=== PATIENT | female | born 1970 | race Caucasian/White ===

== ENCOUNTER 2024-04-11 07:49 | Day surgery (SDC) | payer OTHER ==
[2024-04-05 09:25] LABS: Absolute Basophils 0.1 K/uL (0-0.5); Absolute Eosinophils 0.3 K/uL (0-0.5); Absolute Lymphocytes (CBC) 4.5 K/uL (0.7-4.9); Absolute Monocytes 0.5 K/uL (0.1-1.3); Absolute Neutrophil 5.2 K/uL (1.8-8.0); Basophils % 1.2 % (0-1.3); Eosinophils % 2.5 % (0-4.4); Hemoglobin 13.8 g/dL (12.0-15.0); Lymphocytes % 42.3 % (15.3-44.8); MCH 32.6 pg (27.0-35.0); MCHC 33.7 g/dL (32.0-36.0); MPV 8.4 fL (7.6-11.3); Monocytes % 4.6 % (3.3-12.3); Neutrophils % 49.4 % (41.7-73.7); Platelets 316 thou/uL (152-406); RBC Red Blood Cell Count 4.22 M/uL (3.86-4.86); Red Cell Distribution Width 13.8 % (12.1-15.2)
[2024-04-05 09:34] LABS: Anion Gap 8.2 mEq/L (5.0-15.0); Potassium 4.2 mEq/L (3.5-5.1)
--- NOTE | 2024-04-09 18:01 | EKG ---
Test Date: 2024-04-05 Test Time: 08:30:32 Cost And Sales Record Supervisor: IZABELA MEASUREMENT RESULTS: Intervals: Rate: 60 AR: 196 QRSD: 84 QT: 402 QTc: 402 [place]: P: 71 AR: 196 QRS: 68 T: 60 INTERPRETIVE STATEMENTS: Normal sinus rhythm Normal ECG No previous ECG available for comparison Electronically Signed On 04-09-24 17:51:13 CDT by Lester Curran
[2024-04-11] MEDS: Ringers Lactate 1,000 ML IV ONE (08:16)
[2024-04-11] MEDS ORDERED: BACITRACIN OINTMENT 14 GM TUBE TOP ONE (08:54)
[2024-04-11] MEDS ORDERED: FENTANYL CITR 100 MCG/2 ML ONE (09:22)
[2024-04-11] MEDS ORDERED: ROCURONIUM 50 MG/5 ML VIAL IV ONE (09:22)
[2024-04-11] MEDS ORDERED: LIDOCAINE 2% MPF 5 ML VIAL ONE (09:22)
[2024-04-11] MEDS ORDERED: ONDANSETRON 4 MG/2 ML VIAL ONE (09:22)
[2024-04-11] MEDS ORDERED: propofoL 200 MG/20 ML VIAL IV ONE (09:22)
[2024-04-11] MEDS ORDERED: MIDAZOLAM HCL 2 MG/2 ML INJ ONE (09:22)
[2024-04-11] MEDS ORDERED: SUGAMMADEX SODIUM 200 MG/2 ML VIAL IV ONE (09:44)
[2024-04-11] MEDS ORDERED: HYDROMORPHONE HCL 1 MG/ML INJ ONE (09:44)
[2024-04-11] MEDS: CEFAZOLIN SODIUM 1 GM/VIAL ONE (09:54)
[2024-04-11] MEDS: OXYMETAZOLINE HCL 0.05% 15ML NAS ONE (10:06)
[2024-04-11] MEDS: LIDOCAINE HCL/EPINEPHRINE 20 ML MDV ONE (10:10)
[2024-04-11] MEDS ORDERED: EPHEDRINE SULF 50 MG/ML VIAL ONE (10:13)
[2024-04-11] MEDS: HYDROMORPHONE HCL 1 MG/ML INJ ONE (11:52)
[2024-04-11 13:41] VITALS: BP 104/51; TEMP 98; O2SAT 99
[2024-04-11] MEDS: ACETAMINOPHEN 325 MG TABLET ONE (13:48)
--- NOTE | 2024-04-14 21:51 | OP ---
Date of Procedure: 04/11/2024 Surgeon: JAHAIRA FRIAS Preoperative Diagnoses: 1.Bilateral chronic eustachian salpingitis intrinsic cartilaginous obstruction. 2.Deviated nasal septum. 3.Hypertrophy of bilateral nasal inferior turbinates. 4.Bilateral nasal valve collapse. Postoperative Diagnoses: 1.Bilateral chronic eustachian salpingitis intrinsic cartilaginous obstruction. 2.Deviated nasal septum. 3.Hypertrophy of bilateral nasal inferior turbinates. 4.Bilateral nasal valve collapse. Procedures: 1.Bilateral nasal endoscopy with bilateral eustachian tube balloon dilation. 2.Septoplasty. 3.Bilateral VivAer reduction of inferior nasal turbinate hypertrophy. 4.Bilateral VivAer remodeling of nasal valves. Anesthesia: General endotracheal anesthesia was administered. I also infiltrated approximately 10 m L of 1% lidocaine with 1:100,000 epinephrine at the area for VivAer treatment, which included the int ernal nasal valve and external nasal valve and anterior face of bilateral inferior turbinates and maggy ateral nasal septal mucosa. Specimens: None. Findings: Bilateral eustachian tube orifice obstruction; right greater than left nasal septal deviat ion; bilateral inferior turbinate hypertrophy 3/4; bilateral nasal valve collapse, moderate. Estimated Blood Loss: Approximately 20 mL. Complications: None. Disposition: Stable. The patient tolerated procedure well. Indication For Procedure: The patient is a pleasant 53-year-old female who presented to my outpatien t clinic with bilateral ear tinnitus, bilateral aural fullness, recurring bilateral ear infections th at had been present for 8 to 12 months. Examination revealed bilateral tympanic membrane atelectasis and evidence of eustachian tube dysfunction. Nasal endoscopy also revealed bilateral eustachian tub e obstruction/congestion. In addition, the patient had inability breathing through both nasal caviti es secondary to bilateral nasal valve collapse, inferior turbinate hypertrophy, and nasal septal katherine ation. She has been treated with multiple nasal corticosteroid sprays, decongestants, and antihistam elva and her condition has been refractory to medical therapy. These were indications to bring the p atient to operative suite for the above-mentioned procedures. She understood. All questions were an swered. Risks versus benefits and complications were explained in detail and a consent form was sign ed, which was placed in the chart. Description Of Procedure: The patient was transferred from the preoperative holding area to the oper ative suite by Department of Anesthesia, placed on the operating table supine, sedated and intubated in normal fashion. Table was rotated 180 degrees. I infiltrated approximately 10 mL of 1% lidocaine with 1:100,000 epinephrine into bilateral nasal valves, inferior turbinate mucosa, and nasal septal mucosa. The patient was then sterilely prepped and draped. The patient received Ancef IV, Zofran, a nd Decadron. Initially, I had placed Afrin-soaked nasal pledgets into bilateral nasal cavities in order to easily access the eustachian tube orifices. The pledgets were removed and my attention was placed to the le ft eustachian tube orifice, which was easily approached by lateralizing the left inferior turbinate. I also had to cauterize the posterior edge of the inferior turbinates to reach the eustachian tube o rifice. I then was able to visualize the left eustachian tube orifice and I gently inserted the ball oon into the opening and inflated the balloon to 12 mmHg for 2 minutes. Once this time elapsed, I de flated the balloon and removed it. My attention was placed to the right eustachian tube orifice. Th e patient has significant septal deviation, which I had to medialize with a [place] elevator. I also h ad to cauterize the posterior edge of the inferior turbinate in order to access the eustachian tube o rifice. Once I was able to easily visualize, I gently inserted the balloon into the right eustachian tube orifice and inflated the balloon to 12 mmHg for 2 minutes. After 2 minutes elapsed, I deflated the balloon and removed it. Next, my attention was placed to the nasal septum, in which the nasal s eptal mucosa was incised utilizing a modified Faustino incision with #15 blade scalpel. I then elevat ed the mucosa off the obstructive cartilage and bone. I then made a crossover incision with a #15 bl conchis scalpel, elevating the mucosa off the right cartilage and bone. Then once I was able to isolate the obstructive cartilage and bone, I removed it with a septal knife and Tammi forceps. The muco derek flaps were then reapproximated in a box-like fashion with 5-0 chromic gut suture on straight Keit h needle and then the mucosal incision was reapproximated in a continuous running fashion with 4-0 pl ain gut suture. Next, my attention was placed to VivAer reduction of the nasal valves. Utilizing th e VivAer wand, I was able to apply it to 3 areas of the left internal nasal valve and I performed rad iofrequency ablation to these areas. I then repeated this by putting the wand at three different are as of the right internal nasal valve and remodeled the right internal nasal valve utilizing the VivAe r wand. I then reduced the size of bilateral inferior turbinates by applying it at 5 different areas of the left inferior turbinate and 5 areas of the right inferior turbinate and performed VivAer redu ction of these structures. I then coated Vivas splints with antibiotic ointment and inserted them af ter cutting them down to size into bilateral nasal cavities and secured the splints at the caudal sep susana with a 2-0 Prolene suture. A mustache dressing was placed and she tolerated the procedures well. She will be discharged home on antibiotic and analgesic medications as well as mupirocin ointment a nd will follow up in 1 week or sooner if needed. PATY/JACK Voice ID: [id number] Report ID: [id number]
== END 2024-04-11 13:11 | disposition home or self-care (01) ==
LOC: OR 07:49
PROVIDERS: ATTEND Otolaryngology Facial Plastic Surgery
PROC: 09SM4ZZ Reposition Nasal Septum, Percutaneous Endoscopic Approach (ICD-10-PCS; 2024-04-11)
PROC: 09QM8ZZ Repair Nasal Septum, Via Natural or Artificial Opening Endoscopic (ICD-10-PCS; 2024-04-11)
PROC: 097G7ZZ Dilation of Left Eustachian Tube, Via Natural or Artificial Opening (ICD-10-PCS; principal; 2024-04-11 09:00)
PROC: 097F7ZZ Dilation of Right Eustachian Tube, Via Natural or Artificial Opening (ICD-10-PCS; 2024-04-11 09:00)
DX: H68.023 Chronic Eustachian salpingitis, bilateral (principal); J34.89 Other specified disorders of nose and nasal sinuses; J34.2 Deviated nasal septum; H93.11 Tinnitus, right ear; J34.3 Hypertrophy of nasal turbinates
CPT/HCPCS: 69706; 30520; 30469; 93005; 85025; 80048; 36415; 30802; J2704; J2001; J2250; J3010; J1170 ×2; J2405; J7120; J0690

== ENCOUNTER 2024-04-13 16:38 | Inpatient (IN) | payer OTHER ==
--- OUTSIDE RECORDS SUMMARY | 2024-04-13 16:42 | XMS REPORT | Continuity of Care Document ---
Author Name Unknown Address [address] [place] [address] [facility] thconnect Address [address] [place] [address] Care Team Providers Care Technical Solutions Engineer Name Role Phone Silvestre Yanes Primary Care Physician [phone] Vahe Bangura Attending Clinician Unavailable [id number] Attending Clinician Unavailable CHENCHO MCKINLEY Attending Clinician Unavailable Lm Villanueva Attending Clinician Unavailable Gisel Baker MD Attending Clinician [phone] GISEL BAKER Attending Clinician UnavailARGENTINA Lynne Attending Clinician Unavailable Ilda Attending Clinician Unavaila Jovanni Rivera Attending Clinician Unavailable Jovanni Edge Attending Clinician [phone] Lm Villanueva Admitting Clinician Unavailable Ilda Admitting Clinician Unavaila elsi Payers Payer Name Policy Type Policy Number Effective Date Expirati on Date Source [employer] 2 [id number] 2024 00:00:00 [facility] - OPEN ACCESS PLUS (POS) [id number] 2022 00:00:00 Problems Condition Name Condition Details Condition Category Status Onset Date Resolution Date Last Treatment Date Treating Clinician Comments Source Menopausal symptom Menopausal Symptom Problem Active 03-13 00:00: 00 [facility] Pain of right ankle joint Pain of Right Ankle Joint Problem Active 04-19 00:00: 00 [facility] Talipes planus Talipes Planus Problem Active 04-19 00:00: 00 [facility] Disorder of posterior tibial muscle tendon Disorder of Posterior Tibial Muscle Tendon Problem Active 04-19 00:00: 00 [facility] Pain of left ankle joint Pain of Left Ankle Joint Problem Active 04-18 00:00: 00 [facility] Allergies, Adverse Reactions, Alerts Allergy Name Allergy Type Status Severity Reaction(s) Onset Date Inactive Date Treating Clinician Comments Source PENICILL INS Drug Class Active Med N/V 11-14 00:00: 00 [facility] Penicill ins Propensi ty to adverse reaction s Active Nausea and/or Vomiting 11-14 00:00: 00 [facility] Penicill ins Propensi ty to adverse reaction s Active Nausea and Vomiting 11-14 00:00: 00 Renee Presley - Externa l NO KNOWN ALLERGIE S Drug Class Active [facility] Social History Social Habit Start Date Stop Date Quantity Comments Source Sexual orientation Roman diane Presley - External Exposure to SARS-CoV-2 (event) 2022-11-04 00:00:00 2022-11-14 14:28:00 Not sure [facility] Sex assigned at 1970 00:00:00 1970 00:00:00 Renee Presley - External Smoking Status Start Date Stop Date Source Heavy Tobacco Smoker [facility] Tobacco smoking consumption unknown Renee Presley - External Medications Ordered Medication Name Filled Medication Name Start Date Stop Date Current Medication? Ordering Clinician Indication Dosage Frequency Signature (SIG) Comments Components Source Fenofibrate Micronized 130 MG oral Capsule 02-14 15:37: 32 Yes fenofibrat e micronized 130 mg capsule Renee fish Mupirocin (BACTROBAN) 2 % apply externally Ointment 01-31 00:00: 00 Yes [facility] fish FLUTICASONE PROPIONATE, NASAL, 50 MCG/ACT nasal Suspension 10 00:00: 00 Yes Renee fish dexAMETHaso ne 1 mg tablet 3- 00:00: 00 Yes [facility] estradioL 0.1 mg/24 hr twice weekly patch 10-17 00:00: 00 Yes [facility] fenofibrate micronized 130 mg capsule 10-17 00:00: 00 Yes [facility] meloxicam 15 mg tablet - 00:00: 00 Yes [facility] tiZANidine 4 mg tablet - 00:00: 00 Yes [facility] cefdinir 300 mg capsule 08-26 00:00: 00 Yes [facility] diclofenac sodium 50 mg tablet,senait yed release diclofenac sodium 50 mg tablet,senait yed release No diclofenac sodium 50 mg tablet,del ayed release [facility] Blisovi Fe 1/20 (28) 1 mg-20 mcg (21)/75 mg (7) tablet Blisovi Fe 1/20 (28) 1 mg-20 mcg (21)/75 mg (7) tablet No [place]ovi Fe 1/20 (28) 1 mg-20 mcg (21)/75 mg (7) tablet [facility] doxycycline hyclate 100 mg tablet doxycycline hyclate 100 mg tablet No doxycyclin e hyclate 100 mg tablet [facility] gabapentin 100 mg capsule gabapentin 100 mg capsule No gabapentin 100 mg capsule [facility] pravastatin 20 mg tablet pravastatin 20 mg tablet No pravastati n 20 mg tablet [facility] sulfamethox azole 800 mg-trimetho prim 160 mg tablet sulfamethox azole 800 mg-trimetho prim 160 mg tablet No sulfametho xazole 800 mg-trimeth oprim 160 mg tablet [facility] Divigel 1 mg/gram (0.1 %) transdermal gel packet Apply 1 packet every day by transdermal route. Divigel 1 mg/gram (0.1 %) transdermal gel packet Apply 1 packet every day by transdermal route. No 1packet (s) Q1D Divigel 1 mg/gram (0.1 %) transderma l gel packet Apply 1 packet every day by transderma l route. [facility] fenofibrate micronized 134 mg capsule fenofibrate micronized 134 mg capsule No fenofibrat e micronized 134 mg capsule [facility] gabapentin 100 mg capsule gabapentin 100 mg capsule No gabapentin 100 mg capsule [facility] progesteron e micronized 100 mg capsule Take 1 capsule every day by oral route. progesteron e micronized 100 mg capsule Take 1 capsule every day by oral route. No 1capsul e(s) Q1D progestero ne micronized 100 mg capsule Take 1 capsule every day by oral route. [facility] Vital Signs Vital Name Observation Time Observation Value Comments S ource BP Diastolic 2024-03-13 00:00:00 79 mm[Hg] [facility] BMI (Body Mass Index) 2024-03-13 00:00:00 27 kg/m2 [facility] Body Weight 2024-03-13 00:00:00 162 [lb_av] [facility] BP Systolic 2024-03-13 00:00:00 134 mm[Hg] [facility] Height 2024-03-13 00:00:00 65 [in_i] [facility] Systolic blood pressure 2024-02-15 20:35:00 122 mm[Hg] Renee Multani ld - External Diastolic blood pressure 2024-02-15 20:35:00 64 mm[Hg] Renee cifuentes - External Heart rate 2024-02-15 20:35:00 109 /min Scottie Presley - External Body temperature 2024-02-15 20:35:00 36.83 Violeta Renee Presley - External Respiratory rate 2024-02-15 20:35:00 18 /min Renee Presley - External Body height 2024-02-15 20:35:00 165.1 cm Mariel Presley - External Body weight 2024-02-15 20:35:00 74.934 kg Mariel Sagastumeold - External BMI 2024-02-15 20:35:00 27.49 kg/m2 Mariel Presley - External Oxygen saturation in Arterial blood by Pulse oximetry 2024-02-15 20:35:00 95 /min Renee Multani ld - External Systolic blood pressure 2022-11-14 19:50:00 127 mm[Hg] [facility] Diastolic blood pressure 2022-11-14 19:50:00 83 mm[Hg] [facility] Heart rate 2022-11-14 19:50:00 91 /min [facility] Body height 2022-11-14 19:50:00 165.1 cm [facility] Body weight 2022-11-14 19:50:00 73.891 kg [facility] BMI 2022-11-14 19:50:00 27.11 kg/m2 [facility] Procedures Procedure Date / Time Performed Performing Clinician Source SCREENING MAMMOGRAPHY BI 2-VIEW BREAST INC CAD 2024-03-13 00:00:00 [facility] DXA BONE DENSITY STUDY 1/> SITES AXIAL SKEL 2024-03-13 00:00:00 [facility] XR, ankle, 3 or more view 2022-04-19 00:00:00 [facility] MRI, ankle, w/o contrast 2022-04-19 00:00:00 [facility] Orthopedic Surgery 1982-08-21 00:00:00 [facility] Caesarean Section [facility] Med ical Plan of Care Planned Activity Planned Date Details Comments Source Instructions [facility] Encounters Start Date/Time End Date/Time Encounter Type Admission Type Attending Clinicians Care Facility Care Department Encounter ID Source 2024-03-26 08:00:00 2024-03-26 08:00:00 Outpatient Vahe Hagan [facility] [id number] 2024-03-13 00:00:00 2024-03-13 00:00:00 Vahe Bangura MD: [address] [place] [address] , Ph. [facility] [id number] [facility] 2024-02-15 16:30:00 2024-02-15 16:30:00 Outpatient LAUREEN BRUMFIELD RENEE [id number] Renee [facility] 2024-02-15 15:45:00 2024-02-15 15:45:00 Outpatient ELÍAS CHENCHO RENEE BRUMFIELD [id number] Renee [facility] 2024-02-15 08:15:00 2024-02-15 08:15:00 Outpatient CHENCHO MCKINLEY RENEE RENEE [id number] Renee [facility] 2023-03-22 11:49:00 2023-03-22 11:49:00 Outpatient Lm Reese [facility] [id number] [facility] 2023-03-02 12:00:00 2023-03-02 12:00:00 Outpatient Lm Reese [facility] [id number] [facility] 2022-11-14 14:45:00 2022-11-14 15:13:06 Office Visit Gisel [facility] [id number] [facility] 2022-11-14 14:45:00 2022-11-14 15:13:06 Outpatient R GISEL BAKER [facility] [id number] [facility] 2022-11-10 00:00:00 2022-11-10 00:00:00 Telephone Nas Bakergrace Fish [facility] [id number] [facility] 2022-11-09 15:00:00 2022-11-09 15:00:00 Outpatient ARGENTINA HOLMAN [facility] [id number] [facility] 2022-06-13 00:00:00 2022-06-13 00:00:00 Outpatient FOG_Minesh_ Scott AOSM AO [id number] [facility] 2022-04-19 14:30:00 2022-04-19 14:30:00 [facility] [id number] [facility] 2022-04-19 00:00:00 2022-04-19 00:00:00 Outpatient FOG_Minesh_ Jovanni_ AOSM AOSM [id number] [facility] 2022-04-19 00:00:00 2022-04-19 00:00:00 Jovanni Edge MD: [address] [place] [id number] , Ph. [phone] [facility] [place] [facility] [id number] [facility] 2022-04-19 00:00:00 2022-04-19 00:00:00 Outpatient Marintristan Jovanni Rickie AOSM AOSM [id number] 2022-04-19 00:00:00 2022-04-19 00:00:00 Outpatient Minesh Jovanni Rickie AOSM AOSM [id number] 2022-04-15 00:00:00 2022-04-15 00:00:00 Outpatient LULU_Silvia Chavez AOSM [id number] [facility] 2022-02-24 08:00:00 2022-02-24 08:00:00 Outpatient Lm Reese [facility] [id number] [facility] 2021-03-08 12:00:00 2021-03-08 12:00:00 Outpatient Lm Reese [facility] [id number] [facility] 2021-02-18 12:00:00 2021-02-18 12:00:00 Outpatient Lm Reese [facility] [id number] [facility] Notes Date/Time Note Provider Source 2024-02-15 15:37:40 Chief Complaint Patient presents with Results RF levels Hand Pain Kya Almendarez CMA I T [facility]
[2024-04-13] MEDS ORDERED: FAMOTIDINE 20 MG/2 ML VIAL IV ONE (17:39)
[2024-04-13] MEDS ORDERED: Meropenem 1000 MG/VIAL IV ONE (17:39)
[2024-04-13] MEDS ORDERED: NA CHLORIDE 0.9% 0 ML ONE (17:39)
[2024-04-13] MEDS ORDERED: NA CHLORIDE 0.9% 2,000 ML ONE (17:40)
[2024-04-13 18:04] LABS: Absolute Basophils 0.1 K/uL (0-0.5); Absolute Eosinophils 0.3 K/uL (0-0.5); Absolute Lymphocytes (CBC) 1.6 K/uL (0.7-4.9); Absolute Monocytes 0.6 K/uL (0.1-1.3); Absolute Neutrophil 15.1 K/uL (1.8-8.0); Basophils % 0.5 % (0-1.3); Eosinophils % 1.8 % (0-4.4); Hemoglobin 15.2 g/dL (12.0-15.0); Lymphocytes % 8.8 % (15.3-44.8); MCH 32.3 pg (27.0-35.0); MPV 8.4 fL (7.6-11.3); Monocytes % 3.3 % (3.3-12.3); Neutrophils % 85.6 % (41.7-73.7); Platelets 285 thou/uL (152-406); RBC Red Blood Cell Count 4.69 M/uL (3.86-4.86); Red Cell Distribution Width 13.9 % (12.1-15.2)
[2024-04-13 18:15] LABS: Protime INR 0.89
--- NOTE | 2024-04-13 18:24 | ER ---
Nurse's Notes [facility] Name: Karrie Berry Age: 53 yrs Sex: Female : 1970 Arrival Date: 04/13/2024 Time: 16:38 Bed 3 Private MD: Diagnosis: Weakness;Hypothermia, initial encounter;Dizziness and giddiness;Vomiting;Epistaxis-SP SPETOPLASTY;Elevated white blood cell count;Severe sepsis without septic shock Presentation: 04/13 16:46 Chief complaint: EMS states: toned out for sudden onset of cold sweats, nausea and me1 generalized weakness. s/p septoplasty on . Temp for EMS was 92 degrees axillary. 20 g RFA established, NS 700 ml and zofran 4 mg administered as well as active warming provided. Coronavirus screen: Vaccine status: Patient reports receiving the 2nd dose of the covid vaccine. Ebola Screen: No symptoms or risks identified at this time. Initial Sepsis Screen: Does the patient meet any 2 criteria? No. Patient's initial sepsis screen is negative. Does the patient have a suspected source of infection? No. Patient's initial sepsis screen is negative. Risk Assessment: Do you want to hurt yourself or someone else? Patient reports no desire to harm self or others. Onset of symptoms was April 13, 2024. 16:46 Method Of Arrival: EMS: [place] [id number] 16:46 Acuity: KEIRA 3 me1 Triage Assessment: 16:51 General: Appears uncomfortable, ill, well groomed, well developed, well nourished, me1 Behavior is calm, cooperative, appropriate for age, Reports sudden onset of cold sweats, nausea/vomiting and weakness today. s/p septoplasty on . Pain: Complains of pain in head Pain does not radiate. Pain currently is 7 out of 10 on a pain scale. Quality of pain is described as aching, Pain began suddenly, Is continuous. EENT: No signs and/or symptoms were reported regarding the EENT system. Neuro: Level of Consciousness is awake, alert, obeys commands, Oriented to person, place, time, situation, Appropriate for age. Cardiovascular: Patient's skin is warm and dry. Respiratory: Airway is patent Trachea midline Respiratory effort is even, unlabored, Respiratory pattern is regular, symmetrical. GI: Reports nausea, vomiting. : No signs and/or symptoms were reported regarding the genitourinary system. Derm: Skin is intact, Skin is clammy, Skin is normal. Musculoskeletal: No signs and/or symptoms reported regarding the musculoskeletal system. LEASING AGENT: 16:51 LMP N/A - Hysterectomy, Not me1 Historical: - Allergies: 16:51 Amoxicillin; me1 - PMHx: 16:51 Fibromyalgia; me1 - PSHx: 16:51 septoplasty; me1 - Immunization history:: Adult Immunizations up to date. - Infectious Disease History:: Denies. - Social history:: Smoking status: Patient reports the use of cigarette tobacco products, denies chronic smoking, but will smoke occasionally. Screenin:57 [facility] ED Fall Risk Assessment (Adult) History of falling in the last 3 months, me1 including since admission No falls in past 3 months (0 pts) Confusion or Disorientation No (0 pts) Intoxicated or Sedated No (0 pts) Impaired Gait No (0 pts) Mobility Assist Device Used No (0 pt) Altered Elimination No (0 pt) Score/Fall Risk Level 0 - 2 = Low Risk Maintained a safe environment, Provided non-skid footwear, Hourly rounding (assess needs \T\ fall precautionary measures) done. Abuse screen: Denies threats or abuse. Nutritional screening: No deficits noted. Tuberculosis screening: No symptoms or risk factors identified. Assessment: 16:57 General: see triage assessment. . me1 19:47 Reassessment: Patient appears in no apparent distress at this time. Patient and/or bm8 family updated on plan of care and expected duration. Pain level reassessed. Patient is alert, oriented x 3, equal unlabored respirations, skin warm/dry/pink. Pain: Complains of pain in face Pain currently is 6 out of 10 on a pain scale. Quality of pain is described as aching, crampy. Neuro: No deficits noted. Level of Consciousness is awake, alert, obeys commands, Oriented to person, place, time, situation, Appropriate for age. 19:48 Respiratory: Airway is patent Respiratory effort is even, unlabored, Respiratory bm8 pattern is regular, symmetrical, Breath sounds are clear bilaterally. GI: Abdomen is flat, non-distended, Bowel sounds present X 4 quads. Patient currently denies nausea, pain, vomiting. : No signs and/or symptoms were reported regarding the genitourinary system. EENT: bandage to face over nose post septoplasty. Derm: No signs and/or symptoms reported regarding the dermatologic system. Vital Signs: 16:46 BP 111 / 60; Pulse 80; Resp 18; Temp 94.3(A); Pulse Ox 100% ; Weight 72.57 kg; Height 5 me1 ft. 5 in. ; Pain 6/10; 19:48 BP 120 / 47; Pulse 73; Resp 18; Temp 97.5; Pulse Ox 100% ; Pain 6/10; bm8 16:46 Body Mass Index 26.63 (72.57 kg, 165.1 cm) me1 16:46 Pain Scale: Adult me1 19:48 Pain Scale: Adult bm8 Donaldo Coma Score: 19:48 Eye Response: spontaneous(4). Motor Response: obeys commands(6). Verbal Response: bm8 oriented(5). Total: 15. ED Course: 16:45 Patient arrived in ED. me1 16:49 Mayo Ward MD is Attending Physician. [facility] 16:50 Triage completed. me1 16:51 Arm band placed on Patient placed in an exam room. me1 16:57 Patient has correct armband on for positive identification. Bed in low position. Call me1 light in reach. Side rails up X2. Provided Education on: POC. Verbalized understanding. . Client placed on continuous cardiac and pulse oximetry monitoring. NIBP monitoring applied. teletypesetter monitor on. Pulse ox on. NIBP on. Warm blanket given. 16:57 No provider procedures requiring assistance completed. Maintain EMS IV. Dressing me1 intact. Good blood return noted. Site clean \T\ dry. Gauge \T\ site: 20g RFA. Flushed with 10 mL NS. 17:27 Kristin Cox, RN is Primary Nurse. me1 17:35 Missed attempt(s): 22 gauge in right antecubital area. me1 18:03 Basic Metabolic Panel Sent. me1 18:03 CBC with Diff Sent. me1 18:03 LFT's Sent. me1 18:03 Magnesium Sent. me1 18:03 NT PRO-BNP Sent. me1 18:03 PT-INR Sent. me1 18:03 Troponin HS Sent. me1 18:03 Lactate w/ 2H reflex if indic. Sent. me1 18:03 Blood Culture Adult (2) Sent. me1 18:03 Initial lab(s) drawn, by ED staff, sent to lab. First set of blood cultures drawn by ED [facility] staff. 18:21 Reyes Luo MD is Hospitalizing Provider. [facility] 18:30 Notified ED physician of a critical lab result(s). lactate 2.1. ll1 18:42 XRAY Chest (1 view) In Process Unspecified. EDMS 19:27 Second set of blood cultures drawn by hi, Urine collected: clean catch specimen, clear. bm8 19:34 Inserted saline lock: 18 gauge in right antecubital area, using aseptic technique. bm8 Blood collected. Flushed with 10 mL NS. 19:47 US Abdomen Limited Sent. bm8 19:48 IV discontinued, intact, bleeding controlled, No redness/swelling at site. Pressure bm8 dressing applied, 20g Right wrist. 19:52 US Extremity Venous W Compression Gregg Sent. bm8 Administered Medications: 18:01 Drug: NS 0.9% IV 1000 ml IV at 1 bolus Per protocol; 1000 mL bolus Route: IV; Rate: 1 me1 bolus; Site: right wrist; 20:23 Follow up: Response: No adverse reaction; IV Status: Completed infusion; IV Intake: bm8 1000ml 18:02 Drug: NS 0.9% IV 1000 ml IV at 1 bolus Per protocol; 1000 mL bolus Route: IV; Rate: 1 me1 bolus; Site: right wrist; 19:03 Follow up: Response: No adverse reaction; IV Status: Completed infusion; IV Intake: me1 1000ml 18:02 Drug: Famotidine IVP 20 mg IVP once; dilute with 10 mL 0.9% NaCl; give over 2 minutes me1 Route: IVP; Site: right wrist; 18:38 Follow up: Response: No adverse reaction me1 18:02 Drug: Meropenem IV 1 grams IV at per protocol once; (mix in NS 100 mL) Route: IV; Rate: me1 per protocol; Site: right wrist; 18:33 Follow up: Response: No adverse reaction; IV Status: Completed infusion hi1 19:42 Drug: vancoMYCIN IVPB 1 grams IVPB once over 2 hrs Route: IVPB; Infused Over: 2 hrs; bm8 Site: right antecubital; 21:05 Follow up: Response: No adverse reaction; IV Status: Completed infusion; IV Intake: bm8 250ml 19:42 Drug: Acetaminophen PO 1000 mg PO once Route: PO; bm8 20:23 Follow up: Response: No adverse reaction bm8 Medication: 16:57 VIS not applicable for this client. me1 Intake: 19:03 IV: 1000ml; Total: 1000ml. me1 20:23 IV: 1000ml; Total: 2000ml. bm8 21:05 IV: 250ml; Total: 2250ml. bm8 Outcome: 18:24 Decision to Hospitalize by Provider. shwetha 21:04 Admitted to Tele accompanied by nurse, via wheelchair, room 408, bm8 21:04 Condition: stable 21:04 Instructed on the need for admit, Demonstrated understanding of instructions, follow-up care, medications, 21:06 Patient left the ED. bm8 Signatures: Dispatcher [employer] Mayo Daly MD MD cha Lewis, Lynsay, LEEANN RN 1 Kristin Cox RN RN hi1 Rashard Bishop RN RN bm8
--- NOTE | 2024-04-13 18:24 | EDPHYS ---
Physician Documentation [facility] Name: Karrie Berry Age: 53 yrs Sex: Female : 1970 Arrival Date: 04/13/2024 Time: 16:38 Bed 3 Private MD: ED Physician Mayo Ward HPI: 04/13 17:50 This 53 yrs old Female presents to ER via EMS with complaints of General shwetha Weakness, Nausea. 17:50 The patient presents to the emergency department with nausea, vomiting, that is shwetha intermittent. Onset: The symptoms/episode began/occurred 2 day(s) ago. Possible causes: unknown. The symptoms are aggravated by nothing. The symptoms are alleviated by nothing. Associated signs and symptoms: The patient has no apparent associated signs or symptoms. Severity of symptoms: At their worst the symptoms were mild moderate in the emergency department the symptoms are unchanged. The patient has not experienced similar symptoms in the past. TOE SEWER: 16:51 LMP N/A - Hysterectomy, Not me1 Historical: - Allergies: 16:51 Amoxicillin; me1 - PMHx: 16:51 Fibromyalgia; me1 - PSHx: 16:51 septoplasty; me1 - Immunization history:: Adult Immunizations up to date. - Infectious Disease History:: Denies. - Social history:: Smoking status: Patient reports the use of cigarette tobacco products, denies chronic smoking, but will smoke occasionally. ROS: 17:51 Constitutional: Negative for fever, chills, and weight loss, Eyes: Negative for injury, shwetha pain, redness, and discharge, ENT: Negative for injury, pain, and discharge, Neck: Negative for injury, pain, and swelling, Cardiovascular: Negative for chest pain, palpitations, and edema, Respiratory: Negative for shortness of breath, cough, wheezing, and pleuritic chest pain, Abdomen/GI: Negative for abdominal pain, nausea, vomiting, diarrhea, and constipation, Back: Negative for injury and pain, : Negative for injury, bleeding, discharge, and swelling, MS/Extremity: Negative for injury and deformity, Skin: Negative for injury, rash, and discoloration, Psych: Negative for depression, anxiety, suicide ideation, homicidal ideation, and hallucinations, Allergy/Immunology: Negative for hives, rash, and allergies, Endocrine: Negative for neck swelling, polydipsia, polyuria, polyphagia, and marked weight changes, Hematologic/Lymphatic: Negative for swollen nodes, abnormal bleeding, and unusual bruising, 17:51 Abdomen/GI: Positive for nausea, vomiting, and diarrhea, 17:51 Neuro: Positive for dizziness, weakness, Exam: 17:51 Constitutional: This is a well developed, well nourished patient who is awake, alert, shwetha and in no acute distress. Head/Face: Normocephalic, atraumatic. Eyes: Pupils equal round and reactive to light, extra-ocular motions intact. Lids and lashes normal. Conjunctiva and sclera are non-icteric and not injected. Cornea within normal limits. Periorbital areas with no swelling, redness, or edema. ENT: Nares patent. No nasal discharge, no septal abnormalities noted. Tympanic membranes are normal and external auditory canals are clear. Oropharynx with no redness, swelling, or masses, exudates, or evidence of obstruction, uvula midline. Mucous membranes moist. Neck: Trachea midline, no thyromegaly or masses palpated, and no cervical lymphadenopathy. Supple, full range of motion without nuchal rigidity, or vertebral point tenderness. No Meningismus. Chest/axilla: Normal chest wall appearance and motion. Nontender with no deformity. No lesions are appreciated. Cardiovascular: Regular rate and rhythm with a normal S1 and S2. No gallops, murmurs, or rubs. Normal PMI, no JVD. No pulse deficits. Respiratory: Lungs have equal breath sounds bilaterally, clear to auscultation and percussion. No rales, rhonchi or wheezes noted. No increased work of breathing, no retractions or nasal flaring. Abdomen/GI: Soft, non-tender, with normal bowel sounds. No distension or tympany. No guarding or rebound. No evidence of tenderness throughout. Back: No spinal tenderness. No costovertebral tenderness. Full range of motion. Skin: Warm, dry with normal turgor. Normal color with no rashes, no lesions, and no evidence of cellulitis. MS/ Extremity: Pulses equal, no cyanosis. Neurovascular intact. Full, normal range of motion. Neuro: Awake and alert, GCS 15, oriented to person, place, time, and situation. Cranial nerves II-XII grossly intact. Motor strength 5/5 in all extremities. Sensory grossly intact. Cerebellar exam normal. Normal gait. Psych: Awake, alert, with orientation to person, place and time. Behavior, mood, and affect are within normal limits. 17:51 ECG was reviewed by the Attending Physician. 17:54 ECG was reviewed by the Attending Physician. [facility] Vital Signs: 16:46 BP 111 / 60; Pulse 80; Resp 18; Temp 94.3(A); Pulse Ox 100% ; Weight 72.57 kg; Height 5 me1 ft. 5 in. ; Pain 6/10; 19:48 BP 120 / 47; Pulse 73; Resp 18; Temp 97.5; Pulse Ox 100% ; Pain 6/10; bm8 16:46 Body Mass Index 26.63 (72.57 kg, 165.1 cm) me1 16:46 Pain Scale: Adult me1 19:48 Pain Scale: Adult bm8 [place] Coma Score: 19:48 Eye Response: spontaneous(4). Motor Response: obeys commands(6). Verbal Response: bm8 oriented(5). Total: 15. MDM: 16:50 Patient medically screened. [facility] 17:52 Differential diagnosis: Nonspecific abd pain, gastritis, viral gastroenteritis, shwetha gastroenteritis. Differential Diagnosis altered mental status, sepsis. Differential diagnosis: cardiac arrhythmia, generalized weakness, hypovolemia, idiopathic dizziness, near-syncope, sepsis, syncope, vertigo. Data reviewed: vital signs, nurses notes, lab test result(s), EKG, radiologic studies, plain films. Consideration of Admission/Observation Patient was admitted/placed on observation. Escalation of care including admission/observation considered. I considered the following discharge prescriptions or medication management in the emergency department Medications were administered in the Emergency Department. See MAR. Independent interpretation of the following test(s) in the Emergency Department EKG: See my EKG interpretation above. Test considered but Not performed: Ultrasound no abd usg. Historians other than the Patient: EMS: ems well in formed. Care significantly affected by the following chronic conditions: fibromyalgia. Counseling: I had a detailed discussion with the patient and/or guardian regarding the historical points, exam findings, and any diagnostic results supporting the discharge/admit diagnosis, lab results, radiology results, the need for further work-up and treatment in the hospital. 04/13 16:55 Order name: Basic Metabolic Panel; Complete Time: 18:36 [facility] 04/13 16:55 Order name: CBC with Diff [facility] 08/24 16:55 Order name: LFT's; Complete Time: 18:36 [facility] 04/13 16:55 Order name: Magnesium; Complete Time: 18:36 [facility] 04/13 16:55 Order name: NT PRO-BNP; Complete Time: 18:36 [facility] 04/13 16:55 Order name: PT-INR; Complete Time: 18:20 [facility] 04/13 16:55 Order name: Troponin HS; Complete Time: 18:36 [facility] 04/13 16:55 Order name: Lipase; Complete Time: 18:36 [facility] 04/13 16:55 Order name: Lactate w/ 2H reflex if indic.; Complete Time: 18:36 [facility] 04/13 16:55 Order name: Blood Culture Adult (2) [facility] 04/13 16:55 Order name: Urinalysis w/ reflexes [facility] 04/13 16:55 Order name: Urine Culture [facility] 04/13 20:15 Order name: Urinalysis w/ reflexes [facility] 04/13 20:15 Order name: CBC with Automated Diff [facility] 04/13 20:15 Order name: CBC with Automated Diff [facility] 04/13 20:15 Order name: Comprehensive Metabolic Panel [facility] 04/13 20:15 Order name: Comprehensive Metabolic Panel [facility] 04/13 20:31 Order name: Ghost Lactate-NO COLLECT Timer [facility] 04/13 16:55 Order name: XRAY Chest (1 view); Complete Time: 19:25 [facility] 04/13 17:52 Order name: US Extremity Venous W Compression Gregg [facility] 04/13 18:38 Order name: US Abdomen Limited [facility] 04/13 20:47 Order name: US [facility] 04/13 20:49 Order name: US [facility] 04/13 20:15 Order name: CONS Physician Consult [facility] 04/13 16:55 Order name: Cardiac monitoring; Complete Time: 20:24 [facility] 04/13 16:55 Order name: EKG - Nurse/Tech; Complete Time: 18:02 [facility] 04/13 16:55 Order name: IV Saline Lock; Complete Time: 16:59 [facility] 04/13 16:55 Order name: Labs collected and sent; Complete Time: 18:02 [facility] 04/13 16:55 Order name: O2 Per Protocol; Complete Time: 16:59 [facility] 04/13 16:55 Order name: O2 Sat Monitoring; Complete Time: 16:59 [facility] 04/13 18:20 Order name: IV Saline Lock - Large Bore; Complete Time: 19:33 shwetha EC:51 Rate is 87 beats/min. Rhythm is regular. QRS [place] is Normal. ND interval is normal. QRS shwetha interval is normal. QT interval is normal. No Q waves. T waves are Normal. No ST changes noted. Clinical impression: Normal ECG, NSR w/ Non-specific ST/T Changes, and No evidence of ischemia. Interpreted by me. Reviewed by me. 17:54 Rate is 878 beats/min. Rhythm is regular. QRS Bucklin is Normal. ND interval is normal. shwetha QRS interval is normal. QT interval is normal. No Q waves. T waves are Normal. Clinical impression: Normal ECG, NSR w/ Non-specific ST/T Changes, and No evidence of ischemia. Interpreted by me. Reviewed by me. Administered Medications: 18:01 Drug: NS 0.9% IV 1000 ml IV at 1 bolus Per protocol; 1000 mL bolus Route: IV; Rate: 1 me1 bolus; Site: right wrist; 20:23 Follow up: Response: No adverse reaction; IV Status: Completed infusion; IV Intake: bm8 1000ml 18:02 Drug: NS 0.9% IV 1000 ml IV at 1 bolus Per protocol; 1000 mL bolus Route: IV; Rate: 1 me1 bolus; Site: right wrist; 19:03 Follow up: Response: No adverse reaction; IV Status: Completed infusion; IV Intake: me1 1000ml 18:02 Drug: Famotidine IVP 20 mg IVP once; dilute with 10 mL 0.9% NaCl; give over 2 minutes me1 Route: IVP; Site: right wrist; 18:38 Follow up: Response: No adverse reaction me1 18:02 Drug: Meropenem IV 1 grams IV at per protocol once; (mix in NS 100 mL) Route: IV; Rate: me1 per protocol; Site: right wrist; 18:33 Follow up: Response: No adverse reaction; IV Status: Completed infusion me1 19:42 Drug: vancoMYCIN IVPB 1 grams IVPB once over 2 hrs Route: IVPB; Infused Over: 2 hrs; bm8 Site: right antecubital; 21:05 Follow up: Response: No adverse reaction; IV Status: Completed infusion; IV Intake: bm8 250ml 19:42 Drug: Acetaminophen PO 1000 mg PO once Route: PO; bm8 20:23 Follow up: Response: No adverse reaction bm8 Disposition Summary: 04/13/24 18:24 Hospitalization Ordered Notes: Hospitalization Status: Inpatient Admission shwetha Provider: Reyes Luo cha Location: Telemetry/MedSurg (Inpatient) shwetha Condition: Fair shwetha Problem: new shwetha Symptoms: have improved shwetha Bed/Room Type: Standard shwetha Room Assignment: [id number](04/13/24 20:17) vc1 Diagnosis - Weakness shwetha - Hypothermia, initial encounter shwetha - Dizziness and giddiness shwetha - Vomiting shwetha - Epistaxis - SP SPETOPLASTY shwetha - Elevated white blood cell count shwetha - Severe sepsis without septic shock shwetha Forms: - Medication Reconciliation Form shwetha - SBAR form shwetha - Leadership Thank You Letter shwetha Signatures: Dispatcher [employer] Mayo Daly MD MD cha Calcote, Vanessa, RN RN vc1 Kristin Cox, LEEANN RN me1 Rashard Bishop RN RN bm8 Corrections: (The following items were deleted from the chart) 20:17 18:24 shwetha vc1
[2024-04-13 18:26] LABS: Albumin/Globulin Ratio 1.1 (1.1-1.8); Bilirubin Direct 0.2 mg/dL (0-0.2); Bilirubin Indirect, Calculated 0.3 mg/dL (0.2-0.8); Bilirubin Total 0.5 mg/dL (0.2-1.0); Globulin 3.6 g/dL (2.3-3.5); Magnesium 2.1 mg/dL (1.6-2.4); Protein, Total 7.6 g/dL (6.4-8.2)
--- NOTE | 2024-04-13 18:47 | RAD REPORT ---
EXAM DESCRIPTION: RAD - Chest Single View - 04/13/2024 6:40 pm CLINICAL HISTORY: COUGH Chest pain. COMPARISON: <Comparisons> FINDINGS: Portable technique limits examination quality. The lungs are grossly clear. The heart is mildly prominent in size. No displaced fractures. IMPRESSION: No acute intrathoracic process suspected.
[2024-04-13] MEDS ORDERED: VANCOMYCIN 1 GM/VIAL ONE (19:37)
[2024-04-13] MEDS ORDERED: NA CHLORIDE 0.9% 250 ML ONE (19:38)
[2024-04-13] MEDS ORDERED: ACETAMINOPHEN 500 MG TAB ONE (19:38)
[2024-04-13] MEDS ORDERED: ONDANSETRON 4 MG/2 ML VIAL IV PRN (20:07)
[2024-04-13] MEDS ORDERED: VANCOMYCIN 1 GM in NA CHLORIDE 0.9% 250 ML IVPB SCH (20:14)
--- NOTE | 2024-04-13 20:19 | P.HP ---
Certification for Inpatient Patient admitted to: Inpatient With expected LOS: >2 Midnights Practitioner: I am a practitioner with admitting privileges, knowledge of patient current condition, hospital course, and medical plan of care. Services: Services provided to patient in accordance with Admission requirements found in Title 42 Section 412.3 of the Code of Federal Regulations Patient History Date of Service: 04/13/24 Reason for admission: intractable nausea and vomiting History of Present Illness: 53 yrs old Female with past medical history of fibromyalgia who had a recent septoplasty done 3 days ago and was brought to ER with nausea and vomiting which has been going on for the last 2 days and has been intermittent. Denies any abdominal pain. Denies any diarrhea Patient had a recent septoplasty done here which was uneventful. Complains of pain in face and the nostrils. Denies any fever but associated with some chills. Denies any chest pain or shortness of breath. Patient was assessed in the ER and was found to have leukocytosis and elevated lactic acid and was admitted for further management Allergies amoxicillin Allergy (Verified 04/13/24 23:04) Nausea/Vomiting grape Allergy (Verified 04/13/24 23:04) Nausea/Vomiting Home Medications: B5/B6/PABA/Cordy/Rhodi/Ginseng [Adrenal Essence Capsule] 1 each PO BID 04/05/24 Fenofibrate,Micronized [Fenofibrate] 130 mg PO DAILY 04/05/24 Gabapentin 100 mg PO DAILY 04/05/24 Magnesium Oxide [Magnesium] 500 mg PO BID 04/05/24 Potassium Gluconate [Potassium] 1 tab PO DAILY 04/05/24 Progesterone, Micronized [Progesterone] 100 mg PO DAILY 04/05/24 estradioL [Divigel] 1 each TD DAILY 04/05/24 Ascorbic Acid [Vitamin C] 1,000 mg PO DAILY 04/13/24 Folic Acid 1 tab PO DAILY 04/13/24 Zinc Amino Acid Chelate [Zinc] 1 tab PO DAILY 04/13/24 - Past Medical/Surgical History Past Medical History: Reviewed- Non-Contributory Past Surgical History: Reviewed- Non-Contributory -: Septoplasty - Social History Smoking Status: Never smoker Review of Systems 10-point ROS is otherwise unremarkable Physical Examination - Vital Signs Temperature: 94.3 F Blood Pressure: 110/60 Pulse: 82 Respirations: 18 Pulse Ox (%): 94 - Physical Exam General: Alert, Oriented x3, Cooperative, Mild distress HEENT: Atraumatic, Normocephalic Neck: Supple, JVD not distended Respiratory: Clear to auscultation bilaterally, Normal air movement Cardiovascular: Regular rate/rhythm, Normal S1 S2 Capillary refill: <2 Seconds Gastrointestinal: Soft and benign, W/out hepatosplenomegaly Musculoskeletal: No clubbing, No swelling Integumentary: No rashes, Tenderness/swelling Neurological: Normal gait, Normal speech, Normal affect Lymphatics: No axilla or inguinal lymphadenopathy - Studies Laboratory Data (last 24 hrs) 04/13/24 04/13/24 04/13/24 17:40 17:40 17:40 WBC 17.70 H Hgb 15.2 H Hct 46.0 H Plt Count 285 PT 10.0 INR 0.89 Sodium 140 Potassium 4.0 BUN 25 H Creatinine 1.05 H Glucose 107 H Magnesium 2.1 Total Bilirubin 0.5 AST 117 H ALT 142 H Alkaline Phosphatase 92 Lipase 25 Assessment and Plan - Plan Possible sepsis Hypothermia Leukocytosis Lactic acidosis Started on IV hydration Started on antibiotic empirically Will obtain cultures Change antibiotic as per sensitivity Recent septoplasty Will consult ENT Elevated LFTs Will get an ultrasound of the abdomen Monitor closely GI/DVT prophylaxis Advanced directive full code Discharge Plan: Home Plan to discharge in: 48 Hours - Advance Directives Does patient have a Living Will: No Does patient have a Durable POA for Healthcare: No - Code Status/Comfort Care Code Status: Full Code Time Spent Managing Pts Care (In Minutes): 48
[2024-04-13] MEDS: VANCOMYCIN 250 MG in NA CHLORIDE 0.9% 100 ML IVPB ONE (20:45)
--- NOTE | 2024-04-13 20:47 | RAD REPORT ---
EXAM DESCRIPTION: US - Extrem Venous W Compress Gregg - 04/13/2024 8:30 pm CLINICAL HISTORY: PAIN Bilateral leg edema and swelling. COMPARISON: <Comparisons> TECHNIQUE: Real-time sonographic interrogation of the left and right lower extremity deep venous sys tems was performed. FINDINGS: Normal compressibility, flow augmentation, phasic flow and spontaneous flow is identified in both the left and right lower extremity deep venous systems. IMPRESSION: No sonographic evidence of left or right lower extremity deep venous thrombosis.
--- NOTE | 2024-04-13 20:49 | RAD REPORT ---
EXAM DESCRIPTION: US - Abdomen Exam Limited - 04/13/2024 8:31 pm CLINICAL HISTORY: ABD PAIN COMPARISON: <Comparisons> FINDINGS: The gallbladder demonstrates no gallstones. No pericholecystic fluid or gallbladder wall t hickening. The common bile duct is normal measuring 2 mm. The liver demonstrates no findings of intrahepatic biliary dilatation. IMPRESSION: Unremarkable examination.
[2024-04-13 22:02] LABS: Blood Morphology Comment NOT SEEN (NOT SEEN); Platelet Estimate ADEQ; White Blood Cell Scan OK (OK)
[2024-04-13] MEDS: NA CHLORIDE 0.9% 1,000 ML IV SCH (22:46)
[2024-04-13] MEDS ORDERED: HYDROCODONE/APAP 5/325 MG TAB PO PRN (23:17)
[2024-04-13] MEDS ORDERED: MORPHINE 2 MG/ML SYR IV PRN (23:17)
[2024-04-13 23:40] LABS: Sqamous Epithelial None Seen /HPF (None Seen); Urine Bacteria None Seen /HPF (<20); Urine Bilirubin NEGATIVE (Negative); Urine Blood Negative (Negative); Urine Clarity Clear (Clear); Urine Color Yellow (Yellow); Urine Culture Reflex Order NOT NEEDED; Urine Glucose NEGATIVE (Negative); Urine Ketones NEGATIVE (Negative); Urine Microscopic Reflex YN ORDER UMIC; Urine Mucus Slight /HPF (None Seen); Urine Nitrite NEGATIVE (Negative); Urine Protein NEGATIVE (Negative); Urine RBC <5 /HPF (None Seen); Urine Urobilinogen Normal (Normal); Urine WBC <5 /HPF (<5); Urine pH 6.5 (5.0-7.0)
[2024-04-14] MEDS: PIPER TAZO 3.375 GM in NA CHLORIDE 0.9% 100 ML IV SCH (01:00)
[2024-04-14 01:22] VITALS: BMI 28.1
[2024-04-14] MEDS: ACETAMINOPHEN 325 MG TABLET PO PRN (06:04)
[2024-04-14 07:02] LABS: Absolute Eosinophils 0.2 K/uL (0-0.5); Absolute Lymphocytes (CBC) 3.2 K/uL (0.7-4.9); Absolute Monocytes 0.4 K/uL (0.1-1.3); Absolute Neutrophil 6.1 K/uL (1.8-8.0); Basophils % 0.2 % (0-1.3); Eosinophils % 2.3 % (0-4.4); Hemoglobin 12.3 g/dL (12.0-15.0); Lymphocytes % 32.2 % (15.3-44.8); MCH 33.2 pg (27.0-35.0); MCHC 34.2 g/dL (32.0-36.0); MPV 8.3 fL (7.6-11.3); Monocytes % 3.9 % (3.3-12.3); Neutrophils % 61.4 % (41.7-73.7); Nucleated Red Blood Cells % 0.1 % (0-0); Platelets 270 thou/uL (152-406); RBC Red Blood Cell Count 3.71 M/uL (3.86-4.86); Red Cell Distribution Width 13.8 % (12.1-15.2)
[2024-04-14 07:34] LABS: Albumin 3.2 g/dL (3.4-5.0); Albumin/Globulin Ratio 1.2 (1.1-1.8); Anion Gap 7.8 mEq/L (5.0-15.0); Bilirubin Total 0.6 mg/dL (0.2-1.0); Globulin 2.6 g/dL (2.3-3.5); Potassium 3.8 mEq/L (3.5-5.1); Protein, Total 5.8 g/dL (6.4-8.2)
[2024-04-14] MEDS: [UNRECOGNIZED DRUG - OTHER] PO SCH (08:42)
[2024-04-14] MEDS: ASCORBIC ACID 500 MG TABLET PO SCH (08:42)
[2024-04-14] MEDS: GINSENG PO SCH (08:42)
[2024-04-14] MEDS: GABAPENTIN 100 MG CAP PO SCH (08:42)
[2024-04-14] MEDS: B5 PO SCH (08:42)
[2024-04-14] MEDS: B6 PO SCH (08:42)
[2024-04-14] MEDS: ENOXAPARIN 40 MG/0.4 ML SQ SCH (08:42)
[2024-04-14] MEDS: FENOFIBRATE 130 MG PO SCH (08:43)
[2024-04-14] MEDS: ZINC AMINO ACID CHELATE PO SCH (08:43)
[2024-04-14] MEDS: ESTRADIOL TOP SCH (08:43)
[2024-04-14] MEDS: FOLIC ACID 0.4 MG PO SCH (08:43)
[2024-04-14] MEDS: POTASSIUM GLUCONATE 600 MG PO SCH (08:43)
[2024-04-14] MEDS ORDERED: PIPER TAZO 3.375 GM in NA CHLORIDE 0.9% 100 ML IV SCH (09:00)
[2024-04-14] MEDS: PROGESTERONE,MICRONIZED 100 MG CAP PO SCH (09:00)
[2024-04-14] MEDS: POTASSIUM CL SA 10 MEQ TAB PO ONE (10:31)
[2024-04-14 11:32] LABS: CDIFF INTERNAL NEG CONTROL White Background (WHITE BKGD); STOOL CONSISTENCY Liquid/Semi-Solid
[2024-04-14 11:33] LABS: C.diff Antigen/Toxin Ag neg : Tox neg (NEG : NEG)
--- NOTE | 2024-04-14 18:28 | P.PN ---
Subjective Date of Service: 04/14/24 Patient clinically feeling much better. Trying to eat. Still some bleeding on her dressing but overall feels much better. Clinical symptoms have improved. Continue with antibiotics and as long as patient's labs are stable anticipate discharge in the morning. Review of Systems 10-point ROS is otherwise unremarkable Physical Examination - Vital Signs Temperature: 97.6 F Blood Pressure: 122/58 Pulse: 74 Respirations: 18 Pulse Ox (%): 98 - Physical Exam General: Alert, In no apparent distress, Oriented x3 HEENT: Other (Packing along the nares) Respiratory: Clear to auscultation bilaterally, Normal air movement Cardiovascular: Regular rate/rhythm, Normal S1 S2, No murmurs Gastrointestinal: Normal bowel sounds, Soft and benign, Non-distended, No tenderness Musculoskeletal: No clubbing, No swelling, No tenderness Integumentary: No rashes - Studies Laboratory Data (last 24 hrs) 04/13/24 04/13/24 17:40 17:40 WBC 17.70 H Hgb 15.2 H Hct 46.0 H Plt Count 285 Sodium 140 Potassium 4.0 BUN 25 H Creatinine 1.05 H Glucose 107 H Magnesium 2.1 Total Bilirubin 0.5 AST 117 H ALT 142 H Alkaline Phosphatase 92 Lipase 25 Medications List Reviewed: Yes Assessment & Plan - Problems (Diagnosis) (1) Viral gastroenteritis Current Visit: Yes Status: Acute (2) Status post nasal septoplasty Current Visit: Yes Status: Acute (3) SINTIA (acute kidney injury) Current Visit: Yes Status: Acute (4) Lactic acidosis Current Visit: Yes Status: Acute - Plan Plan: 1. Abdominal symptoms have resolved. Nausea vomiting and diarrhea have improved. Stool studies are negative. Continue with IV hydration. Lactic acidosis is negative. Anticipate discharge in the morning. 2. Status post nasal septoplasty; continue with supportive care 3. SINTIA; renal function has improved 4. Anticipate discharge in a.m. Discharge Plan: Home Plan to discharge in: Greater than 2 days - Advance Directives Does patient have a Living Will: No Does patient have a Durable POA for Healthcare: No - Code Status/Comfort Care Code Status: Full Code Critical Care: No Time Spent Managing PTS Care (In Minutes): 35
[2024-04-14] MEDS: MAGNESIUM OXIDE 500 MG PO SCH (20:34)
[2024-04-15 07:15] LABS: Anion Gap 6.9 mEq/L (5.0-15.0); Potassium 3.9 mEq/L (3.5-5.1)
[2024-04-15] MEDS: POTASSIUM CL SA 10 MEQ TAB PO ONE (07:40)
[2024-04-15 08:43] VITALS: O2SAT 99
[2024-04-15 08:52] VITALS: BP 131/60; TEMP 97.8
--- NOTE | 2024-04-15 10:02 | EKG ---
Test Date: 2024-04-13 Test Time: 17:08:43 Home Care Chaplain: JAMSHID MEASUREMENT RESULTS: Intervals: Rate: 83 VT: 164 QRSD: 74 QT: 378 QTc: 444 [place]: P: 57 VT: 164 QRS: 57 T: 40 INTERPRETIVE STATEMENTS: Normal sinus rhythm Normal ECG Compared to ECG 04/05/2024 08:30:32 No significant changes Electronically Signed On 04-15-24 10:00:38 CDT by Lester Curran
--- NOTE | 2024-04-15 11:19 | P.PN ---
Date of Service: 04/15/24 ENT Postop note Patient seen and examined. She reports resolution of vomiting, diarrhea and facial pressure/pain has improved. Apparently, she did not tell our staff that she cannot take amoxicillin due to GI discomfort (her EMR note shows NO ALLERGIES), and thus she was prescribed amoxicillin to take postoperatively as we typically give PCN medication after sinus surgery. She elected not to take it or notify our office of such. She also states that her pharmacy did not have it ready until 04/13/24. Currently, she denies postnasal drainage, bleeding, or headaches. Exam reveals intact bilateral Vivas splints, dry oral mucosa, but no postnasal drainage or blood. Impression: 1. Sepsis, resolving 2. S/p septoplasty, bilateral Vivaer reduction of inferior turbinates, and nasal valve remodeling. Plan: 1. Patient must continue antibiotics and this was stressed today. Will send doxycycline 100 mg BID. Splints will be removed in 4 days outpatient. 2. Apply mupirocin ointment bilateral nares BID. 3. Take prn tylenol or ibuprofen for pain.
--- NOTE | 2024-04-15 11:52 | P.DS ---
Discharge Date: 04/15/24 Disposition: ROUTINE DISCHARGE Discharge Condition: GOOD Reason for Admission: intractable nausea and vomiting - Problems (1) Viral gastroenteritis Current Visit: Yes Status: Acute (2) Status post nasal septoplasty Current Visit: Yes Status: Acute (3) SINTIA (acute kidney injury) Current Visit: Yes Status: Acute (4) Lactic acidosis Current Visit: Yes Status: Acute Brief History of Present Illness: 53 yrs old Female with past medical history of fibromyalgia who had a recent septoplasty done 3 days ago and was brought to ER with nausea and vomiting which has been going on for the last 2 days and has been intermittent. Denies any abdominal pain. Denies any diarrhea Patient had a recent septoplasty done here which was uneventful. Complains of pain in face and the nostrils. Denies any fever but associated with some chills. Denies any chest pain or shortness of breath. Patient was assessed in the ER and was found to have leukocytosis and elevated lactic acid and was admitted for further management Hospital Course: Patient is a 53-year-old female who was admitted to the hospital with nausea vomiting diarrhea. Patient had a fever as well. Patient was status post nasal septoplasty. Patient lactic acid was elevated. Decision was made to admit the patient to the hospital because of concern for sepsis. Patient had a leukocytosis as well as tachycardia and fever. After IV hydration patient's clinical symptoms started improving. Lactic acid improved. White count came back down to normal. Patient also with SINTIA and was given IV hydration. Clinically, patient is doing well and patient is stable for discharge. Seen by ENT and outpatient follow-up recommended and continued doxycycline for 1 week. Vital Signs/Physical Exam: Temp Pulse Resp BP Pulse Ox 97.8 F 61 16 131/60 99 04/15/24 08:00 04/15/24 08:00 04/15/24 08:00 04/15/24 08:00 04/15/24 08:00 General: Alert, In no apparent distress, Oriented x3 Laboratory Data at Discharge: WBC 10.00 thou/uL (4.3-10.9) 04/14/24 06:21 Hgb 12.3 g/dL (12.0-15.0) D 04/14/24 06:21 Hct 36.0 % (36.0-45.0) 04/14/24 06:21 Plt Count 270 thou/uL (152-406) 04/14/24 06:21 PT 10.0 SECONDS (9.4-12.5) 04/13/24 17:40 INR 0.89 04/13/24 17:40 Sodium 141 mEq/L (136-145) 04/15/24 06:08 Potassium 3.9 mEq/L (3.5-5.1) 04/15/24 06:08 BUN 13 mg/dL (7-18) 04/15/24 06:08 Creatinine 0.64 mg/dL (0.55-1.02) 04/15/24 06:08 Glucose 100 mg/dL (74-106) 04/15/24 06:08 Magnesium 2.1 mg/dL (1.6-2.4) 04/13/24 17:40 Total Bilirubin 0.6 mg/dL (0.2-1.0) 04/14/24 06:21 AST 41 U/L (15-37) H 04/14/24 06:21 ALT 91 U/L (13-56) H 04/14/24 06:21 Alkaline Phosphatase 67 U/L (45-117) D 04/14/24 06:21 Lipase 25 U/L (13-75) 04/13/24 17:40 Home Medications: B5/B6/PABA/Cordy/Rhodi/Ginseng [Adrenal Essence Capsule] 2 cap PO DAILY 04/05/24 Fenofibrate,Micronized [Fenofibrate] 130 mg PO DAILY 04/05/24 Gabapentin 100 mg PO DAILY 04/05/24 Magnesium Oxide [Magnesium] 1,000 mg PO BEDTIME 04/05/24 Potassium Gluconate [Potassium] 1 tab PO DAILY 04/05/24 Progesterone, Micronized [Progesterone] 100 mg PO DAILY 04/05/24 estradioL [Divigel] 1 each TD DAILY 04/05/24 Ascorbic Acid [Vitamin C] 1,000 mg PO DAILY 04/13/24 Folic Acid 1 tab PO DAILY 04/13/24 Zinc Amino Acid Chelate [Zinc] 1 tab PO DAILY 04/13/24 Doxycycline Hyclate 100 mg PO BID #14 tab 04/15/24 New Medications: Doxycycline Hyclate 100 mg PO BID #14 tab Physician Discharge Instructions: -DC IV and DC home -Follow-up with PCP in 1 to 2 weeks -Follow-up with ENT in 1 to 2 weeks -Please call Dr. Mathur at [phone] if any questions regarding hospital stay -Please call nursing station at [phone] if any nursing or medication questions -Return to the emergency room if symptoms worsen Diet: Regular Activity: Fall precautions Followup: Muna Ruiz DO [ACTIVE - CAN ADMIT] - 1-2 Weeks NONE,NONE [Primary Care Provider] - Time spent managing pt's care (in minutes): 35
[2024-04-16] MEDS ORDERED: PROGESTERONE MICRONIZED 100 MG PO SCH ×2 (09:00)
--- NOTE | 2024-04-16 12:46 | EKG ---
Test Date: 2024-04-13 Test Time: 17:11:00 Full Service Vending Driver: JAMSHID MEASUREMENT RESULTS: Intervals: Rate: 87 FL: 170 QRSD: 78 QT: 368 QTc: 442 [place]: P: 57 FL: 170 QRS: 52 T: 43 INTERPRETIVE STATEMENTS: Normal sinus rhythm Normal ECG Compared to ECG 04/13/2024 17:08:43 No significant changes Electronically Signed On 04-16-24 12:43:29 CDT by Lester Curran
== END 2024-04-15 13:20 | disposition home or self-care (01) | DRG 872 ==
LOC: ER 16:38 → ERHOLD 20:07 → 4TH 20:30
PROVIDERS: ADMIT Family Medicine; ATTEND Hospitalist
DX: A41.9 Sepsis, unspecified organism (principal); E87.20 Acidosis, unspecified; N17.9 Acute kidney failure, unspecified; R65.20 Severe sepsis without septic shock; A08.4 Viral intestinal infection, unspecified; M79.7 Fibromyalgia; F17.210 Nicotine dependence, cigarettes, uncomplicated; R04.0 Epistaxis; R79.89 Other specified abnormal findings of blood chemistry; R68.0 Hypothermia, not associated with low environmental temperature; Z88.1 Allergy status to other antibiotic agents; Z90.710 Acquired absence of both cervix and uterus
CPT/HCPCS: 36415; 71045; 76705; 80048; 80053; 80076; 81001; 83605; 83690; 83735; 83880; 84484; 85025; 85610; 87040; 87086; 87088; 87324; 93005; 93970; 94760; 99285; J1650; J2185; J2543; J7030; J7050